=== PATIENT | female | born 1995 | race Caucasian/White ===

== ENCOUNTER 2016-08-21 19:18 | Emergency (ER) | payer SELFPAY ==
[2016-08-21] MEDS ORDERED: Famotidine In NaCl 20 mg/50 ml Premix Bag ONE (20:20)
[2016-08-21] MEDS ORDERED: Ketorolac Tromethamine 30 MG/ML VIAL ONE (20:20)
[2016-08-21 20:24] LABS: #Basophils 0.1 thou/uL (0.0-0.2); #Eosinphils 0.1 thou/uL (0.0-0.7); #Monocytes 0.8 thou/uL (0.11-0.59); #Neutrophils 6.1 thou/uL (1.40-6.50); %Eosinophils 1.4 % (0.0-10.0); %Lymphocytes 22.4 % (28.0-48.0); %Monocytes 8.7 % (0.0-4.0); %Neutrophils 66.4 % (31.0-61.0); Hemoglobin 14.5 g/dL (12.0-16.0); Mean Corpuscular HGB CONC 33.7 g/dL (32.0-36.0); Mean Corpuscular Hemoglobin 32.3 pg (25.0-35.0); Mean Corpuscular Volume 95.9 fl (77.0-87.0); Mean Platelet Volume 8.6 fL (7.4-10.4); Platelet Count 280 thou/uL (130-400); RBC Distribution Width 11.3 % (11.5-14.5); Red Blood Cell (RBC) Count 4.47 mill/uL (4.00-5.20); White Blood Cell (WBC) Count 9.1 thou/uL (4.8-10.8)
[2016-08-21 20:31] LABS: Bilirubin Negative (Negative); Blood, Urine Trace (Negative); Clarity Cloudy (Clear); Glucose, Urine (Dipstick) Negative (Negative); Leukocyte Trace (Negative); Nitrite Negative (Negative); Protein, Urine (Dipstick) 30 mg/dL (Neg-Trace); Urobilinogen 0.2 mg/dL (0.2-1.0)
[2016-08-21 20:33] LABS: Pregu Control Bar Appear? YES (CONTROL BAR); Specific Gravity 1.024 (1.002-1.036)
[2016-08-21 20:35] LABS: Specific Gravity, Urine 1.024 (1.002-1.036)
[2016-08-21 20:38] LABS: ALT (SGPT) 14 U/L (0-55); AST (SGOT) 20 U/L (5-30); Albumin 4.4 g/dL (3.5-5.0); Alkaline Phosphatase 86 U/L (40-150); Anion Gap 13 mmol/L (10-20); BUN (Urea Nitrogen) 11 mg/dL (8.4-21.0); Bilirubin, Total 0.4 mg/dL (0.2-1.2); Calc. Creatinine Clearance 0 mL/min (70-130); Calcium 9.7 mg/dL (7.8-10.44); Carbon Dioxide 24 mmol/L (22-29); Chloride 107 mmol/L (98-107); Estimated GFR-MDRD Greater than 90; Globulin 2.9 g/dL (2.4-3.5); Glucose 88 mg/dL (70-105); Lipase 24 U/L (8-78); Potassium 3.4 mmol/L (3.5-5.1); Protein, Total 7.3 g/dL (6.0-8.3); Sodium 141 mmol/L (136-145)
[2016-08-21 20:46] LABS: Bacteria/HPF 1+ HPF (None Seen); Other Microscopic Description FEW CLUE CELLS; RBC/HPF 0-3 HPF (0-3); Trichomonas/HPF 1+ HPF (None Seen)
[2016-08-21] MEDS ORDERED: Azithromycin 250 MG TAB ONE (21:08)
[2016-08-21] MEDS ORDERED: cefTRIAXone\\ROCEPHIN 500 MG VIAL ONE (21:08)
[2016-08-21] MEDS ORDERED: Sterile Water 0 ML ONE (21:10)
[2016-08-21] MEDS ORDERED: Sterile Water 10 ML ONE (21:11)
[2016-08-24 17:32] LABS: Chlamydia by PCR Not Detected (NotDetected); GC by PCR Not Detected (NotDetected)
== END 2016-08-21 22:06 | disposition home or self-care (01) ==
LOC: BURERS 19:18
DX: A59.01 Trichomonal vulvovaginitis (principal); R10.84 Generalized abdominal pain; F17.210 Nicotine dependence, cigarettes, uncomplicated
CPT/HCPCS: 80053; 81003; 81015; 81025; 83690; 85025; 87480; 87491; 87510; 87591; 87660; 96365; 96372; 96375; A4216; J0696; J1885